=== PATIENT | male | born 1990 | race Caucasian/White ===

== ENCOUNTER 2018-02-19 17:23 | Day surgery (SDC) | payer BC, OTHER ==
[2018-02-19] MEDS ORDERED: MIDAZOLAM INJ 2 MG/2 ML VIAL (J2250) As Ordered (19:02)
[2018-02-19] MEDS ORDERED: fentaNYL 100 MCG/2 ML INJECTION (J3010) As Ordered ×2 (19:02→20:55)
[2018-02-19] MEDS ORDERED: LIDOCAINE 2% INJ 100 MG/5 ML SDV (FOR ANES.) As Ordered (19:28)
[2018-02-19] MEDS ORDERED: dexameTHASONE 4 MG/ML 1ML VIAL (J1100) As Ordered (19:28)
[2018-02-19] MEDS ORDERED: PROPOFOL 200 MG/20 ML VIAL As Ordered ×2 (19:28)
[2018-02-19] MEDS ORDERED: ONDANSETRON 4MG/2ML VIAL (J2405) As Ordered (19:28)
[2018-02-19] MEDS: ADACEL/BOOSTRIX VACCINE (DIPHTH/PERTUSS/ACELL/TETANUS)0.5ML SYR (90715) IM (19:30)
[2018-02-19] MEDS ORDERED: ROCURONIUM BROMIDE 50 MG/5 ML VIAL As Ordered (19:32)
[2018-02-19] MEDS: VANCOMYCIN 1000 MG/20 ML VIAL (J3370) As Ordered (19:45)
[2018-02-19] MEDS: VANCOMYCIN HCL 1,000 MG, VIAL MATE ADAPTER 1 EACH in D5W 250 ML IV (19:45)
[2018-02-19] MEDS: cefTAZidime 1 GM in D5W MINI-BAG PLUS 50 ML IV (20:26)
[2018-02-19] MEDS: POVIDONE-IODINE 5% OPHTH PREP SOL 30ML As Ordered (20:28)
[2018-02-19] MEDS: ceFAZolin 1GM INJ (J0690 PER 500MG) As Ordered (20:33)
[2018-02-19] MEDS: AMIKACIN 1000 MG/4 ML VIAL (J0278) XX (20:35)
[2018-02-19] MEDS: ceFAZolin 1GM INJ (J0690 PER 500MG) XX (20:36)
[2018-02-19] MEDS ORDERED: HEALON DUET (HEALON 10MG/ML 0.55ML & HEALON ENDOCOAT 30MG/ML 0.85ML) As Ordered (20:38)
[2018-02-19] MEDS: HEALON DUET (HEALON 10MG/ML 0.55ML & HEALON ENDOCOAT 30MG/ML 0.85ML) As Ordered (20:39)
[2018-02-19] MEDS ORDERED: AcetaZOLAMIDE 500MG INJECTION (J1120) As Ordered (20:52)
[2018-02-19] MEDS ORDERED: GLYCOPYRROLATE INJ 0.2 MG/ML 2 ML VIAL As Ordered ×2 (20:57)
[2018-02-19] MEDS ORDERED: MAXITROL OPHTH OINT 3.5 GM As Ordered (20:57)
[2018-02-19] MEDS ORDERED: NEOSTIGMINE 10 MG/10 ML VIAL (J2710) As Ordered (20:57)
[2018-02-19] MEDS ORDERED: PERCOCET 5MG/325MG TAB PO (21:45)
[2018-02-19] MEDS ORDERED: LR 1,000 ML IV (21:45)
[2018-02-19] MEDS ORDERED: fentaNYL 100 MCG/2 ML INJECTION (J3010) IV (21:45)
[2018-02-19] MEDS ORDERED: METOCLOPRAMIDE INJ 10MG/2ML VIAL (J2765) IV (21:45)
[2018-02-19] MEDS: ONDANSETRON 4MG/2ML VIAL (J2405) IV (22:02)
[2018-02-19] MEDS: AcetaZOLAMIDE 500MG INJECTION (J1120) IV (22:45)
== END 2018-02-19 23:09 | disposition home or self-care (01) ==
LOC: M SDC 23:09
DX: S05.32XA Ocular laceration without prolapse or loss of intraocular tissue, left eye, initial encounter (principal); H21.82 Plateau iris syndrome (post-iridectomy) (postprocedural); W22.8XXA Striking against or struck by other objects, initial encounter; Y93.83 Activity, rough housing and horseplay; Y92.89 Other specified places as the place of occurrence of the external cause; Y99.8 Other external cause status
CPT/HCPCS: 65280

== ENCOUNTER → 2018-09-10 | Outpatient (REF) | payer OTHER | LOC: M SFHCLERA 19:05 | PROVIDERS: ATTEND Physician Assistant | DX: R50.9 Fever, unspecified (principal) ==

== ENCOUNTER 2019-07-23 11:07 | Day surgery (SDC) | payer OTHER ==
[~2019-07-23] VITALS: Ht 175.3 cm; Wt 123.7 kg
[~2019-07-23 11:07] MED LIST: LIDOCAINE 1% MDV 20ML VIAL SQ PRN; LR 1,000 ML IV ONE; MIDAZOLAM INJ 2 MG/2 ML VIAL (J2250) IV SCH; ceFAZolin SOD 2 GM in IV 1 EA IV ONE; fentaNYL 100 MCG/2 ML INJECTION (J3010) IV SCH
[2019-07-23] MEDS ORDERED: ROPIvacaine 0.5% 30 ML INJECTION (J2795 PER 1MG) ONE (11:08)
[2019-07-23] MEDS ORDERED: dexameTHASONE 10 MG/1 ML VIAL PRES.FREE (J1100) ONE (11:08)
[2019-07-23] MEDS ORDERED: EPINEPHrine INJ 1 MG/ML 1ML VIAL ONE (11:08)
[2019-07-23] MEDS ORDERED: MIDAZOLAM INJ 2 MG/2 ML VIAL (J2250) As Ordered ONE ×2 (15:11→16:35)
[2019-07-23] MEDS ORDERED: fentaNYL 100 MCG/2 ML INJECTION (J3010) As Ordered ONE ×2 (15:11→16:35)
[2019-07-23] MEDS ORDERED: EPINEPHrine 1MG/ML INJ 30ML MD-VIAL As Ordered ONE (15:56)
[2019-07-23] MEDS ORDERED: propofoL 200 MG/20 ML VIAL As Ordered ONE (16:35)
[2019-07-23] MEDS ORDERED: LIDOCAINE 2% INJ 100 MG/5 ML SDV (FOR ANES.) As Ordered ONE (16:35)
[2019-07-23] MEDS ORDERED: ROCURONIUM BROMIDE 50 MG/5 ML VIAL As Ordered ONE (16:35)
[2019-07-23] MEDS ORDERED: dexameTHASONE 4 MG/ML 1ML VIAL (J1100) As Ordered ONE (16:41)
[2019-07-23] MEDS ORDERED: ONDANSETRON 4MG/2ML VIAL (J2405) As Ordered ONE (16:54)
[2019-07-23] MEDS ORDERED: KETOROLAC 60 MG/2 ML VIAL (J1885) As Ordered ONE (16:54)
[2019-07-23] MEDS ORDERED: SUGAMMADEX SODIUM 500 MG/5 ML VIAL (BRIDION) As Ordered ONE (16:54)
[2019-07-23] MEDS ORDERED: LR 1,000 ML IV SCH (19:00)
[2019-07-23] MEDS ORDERED: fentaNYL 100 MCG/2 ML INJECTION (J3010) IV PRN (19:00)
[2019-07-23] MEDS ORDERED: ONDANSETRON 4MG/2ML VIAL (J2405) IV PRN (19:00)
[2019-07-23] MEDS ORDERED: oxyCODONE 5MG TAB PO PRN (19:00)
[2019-07-23 20:32] VITALS: BP 144/94
--- NOTE | 2019-07-25 15:31 | RO ---
DATE OF PROCEDURE: 07/23/2019 PREOPERATIVE DIAGNOSIS 1. Right shoulder partial thickness rotator cuff tear. 2. Right shoulder possible labral tear. 3. Right shoulder impingement. 4. Right shoulder acromioclavicular joint arthritis. POSTOPERATIVE DIAGNOSIS 1. Right shoulder partial thickness subscapularis tear. 2. Right shoulder partial articular supraspinatus tear. 3. Right shoulder glenoid chondromalacia. 4. Right shoulder impingement. 5. Right shoulder acromioclavicular joint arthritis. PROCEDURE 1. Right shoulder arthroscopic rotator cuff repair (subscapularis). 2. Right shoulder arthroscopic rotator cuff debridement (supraspinatus). 3. Right shoulder open subpectoral biceps tenodesis. 4. Right shoulder arthroscopic chondroplasty glenoid. 5. Right shoulder arthroscopic subacromial decompression. 6. Right shoulder arthroscopic distal clavicle excision. SURGEON: Dr. Anuel Ga CLINICAL ADMINISTRATIVE COORDINATOR: DANILO Garay ANESTHESIA: General. Interscalene nerve block. IV FLUIDS: Lactated Ringer's. ESTIMATED BLOOD LOSS: 10 mL IMPLANTS: Arthrex, proximal biceps button x1 and Arthrex 4.75 mm Peak SwiveLock anchor x1. CLOSURE: Nylon and Monocryl. DESCRIPTION OF PROCEDURE Patient identified in preoperative holding area and the right shoulder marked by myself. He was brought to the operating room, placed supine on a well-padded OR table with a beanbag. Induction of general anesthesia and then he received appropriate IV antibiotics within 1 hour of incision. Exam under anesthesia revealed 170 degrees of forward flexion, 90 degrees of external rotation with his arm at his side and grade 1 anterior and posterior load and shift. He was then placed in a left side down lateral decubitus position with an axillary roll and all bony prominences were well padded. He was placed in the Arthrex Star sleeve lateral decubitus traction abbott with 10 pounds of traction. Right shoulder was then prepped and draped in normal sterile fashion with Chloraprep. Prior to incision, a time-out was performed per hospital protocol. After time-out was performed the right shoulder was insufflated with lactated Ringer's with a spinal needle. Posterior viewing portal made with a #11-blade, 30 degrees arthroscope was introduced into the joint. Diagnostic arthroscopy was carried out revealing intact superior and posterior labrum. There was a fissure at the chondral labral junction of the anterior inferior and inferior labrum, but no displaced labral tear. There was a negative drive-through sign. Humeral head was noted to be centrally located on the glenoid. The posterior rotator cuff was intact. There was a partial articular tear of the supraspinatus. On first inspection the subscapularis appeared intact, but there was lift off of the upper border of the subscapularis doing the posterior lever push maneuver. There was some low grade longitudinal tearing in the long head of biceps where it was attached to the superior labrum. An anterior working portal was developed through the rotator interval and on probing of the anterior inferior labrum there was felt to be no tearing. The long head of the biceps was brought into the joint and there was no tearing further distal, but there was partial tearing at the biceps labral anchor. A shaver was first used to perform a debridement of the partial articular supraspinatus tear and this was felt to be about a 33% partial articular tear. There was some chondromalacia at the anterior superior glenoid that was debrided with the shaver. Prior to biceps tenotomy an accessory superolateral portal was localized with a spinal needle and again there was lift off of the upper subscapularis consistent with his preoperative exam and MRI. The meniscal biter was used to release the long head of biceps off the superior labrum. A switching stick and rotator cuff grasper were used to manipulate the subscapularis and again there was lift off of the upper third. A shaver was used to clear soft tissue off the lesser tuberosity and create a bleeding surface. Scorpion was used to pass FiberTape through the upper one-third of the subscapularis through healthier tissue. Those sutures were loaded through a Peak 4.75 mm Peak SwiveLock anchor and then an awl was used to create a socket in the lesser tuberosity. The anchor was docked, sutures tensioned, anchor inserted by hand with excellent fixation. This nicely secured the subscapularis to the lesser tuberosity. The arthroscope was placed into the subacromial space where there was moderate bursitis. Bursectomy was performed with shaver and cautery. There was a moderate sized subacromial spur so an acromioplasty was performed at the bur. On probing of the bursal surface of the supraspinatus there was no tearing. Next, attention was turned to the open biceps tenodesis and an incision was made with a #15 blade just lateral to the axilla and then subcutaneous dissection with Metzenbaum scissors and electrocautery. Biceps fascia was carefully opened and the long head of biceps was easily identified and retrieved. A running locking whip stitch was then placed with FiberLoop from the proximal biceps tenodesis set. Excess tendon was trimmed and sent to pathology. Sutures were loaded through the button per routine. Unicortical drill hole made with the spade tip drill bit and then the button was passed through the drill hole on the hamper maker. Sutures were tensioned which flipped the button. The incision was then irrigated to remove all bony debris. The curve free needle was then used to pass one limb of the suture back through the tendon. Knots were tied by hand to lock the construct in place. This nicely restored the resting tension of the biceps. The incision was then irrigated extensively, closed in layered fashion with #2-0 Vicryl and a running Monocryl. At the end of the case Steri-Strips were placed. Arthroscope was placed back into the subacromial space and attention turned the distal clavicle excision. There was near bone on bone contact at the superior aspect of the AC joint. The bur was used to perform a distal clavicle excision removing 5-6 mm of the distal clavicle. The arthroscope was placed into the anterior portal to ensure all posterior-superior bone had been removed to avoid residual impingement. Shoulder was then irrigated and drained. Portals closed with nylon suture. Bulky sterile dressing applied. He was then carefully placed into the Arc-2 sling. He was extubated and transferred to the PACU in stable condition. All counts correct x2. Complications none. Rajan Thomas was present the entire procedure and participated in all essential portions of the procedure. This included patient positioning and draping, holding the arthroscope, assisting with creating a socket for the SwiveLock anchor, holding retractors during the biceps tenodesis and assisting with whip stitching of the tendon.
== END 2019-07-23 20:34 | disposition home or self-care (01) ==
LOC: M SDC 11:07
PROVIDERS: ATTEND Orthopaedic Surgery
DX: M75.41 Impingement syndrome of right shoulder (principal); M19.011 Primary osteoarthritis, right shoulder; M75.111 Incomplete rotator cuff tear or rupture of right shoulder, not specified as traumatic; M94.211 Chondromalacia, right shoulder
CPT/HCPCS: 23430; 29824; 29826; 29827; 64415; 88304; C1713; J0690; J1100; J1885; J2250; J2405; J2795; J3010